=== PATIENT | female | born 1985 | race African-American/Black ===

== ENCOUNTER 2016-11-29 06:24 | Emergency (ER) | payer BC, OTHER ==
[~2016-11-29] VITALS: Ht 165.1 cm; Wt 75.5 kg
[~2016-11-29 06:24] MED LIST: CEPH500 PO; ESCI10TA PO
[2016-11-29 06:27] VITALS: BP 118/78
[2016-11-29] MEDS ORDERED: ALBU8.5H IH (06:53)
[2016-11-29] MEDS ORDERED: ALBUTEROL SULFATE HFA 90 MCG/PUFF 8 GM INHALER IH ONE (07:00)
== END 2016-11-29 07:09 | disposition home or self-care (01) ==
LOC: EMS 06:26
DX: J45.909 Unspecified asthma, uncomplicated (principal); R11.2 Nausea with vomiting, unspecified; R19.7 Diarrhea, unspecified; F17.210 Nicotine dependence, cigarettes, uncomplicated
CPT/HCPCS: 94640; 99283; 99406; J3535

== ENCOUNTER 2018-09-07 12:22 | Inpatient (IN) | payer MEDICAID ==
[~2018-09-07] VITALS: Ht 165.1 cm; Wt 68.5 kg
[~2018-09-07 12:22] MED LIST changes: -CEPH500 PO; +DSS100 PO; -ESCI10TA PO; +LITH300C3 PO; +OMEP20 PO; +VITAD1000 PO
[2018-09-07 13:00] LABS: HEMATOCRIT 39.6 % (36-46); HEMOGLOBIN 13.6 g/dL (12.0-16.0); MEAN CORPUSCULAR HEMOGLOBIN 32.7 pg (26.0-34.0); MEAN CORPUSCULAR HGB CONC 34.4 G/dL (31.0-37.0); MEAN CORPUSCULAR VOLUME 95 fL (80-100); MONOCYTES # (AUTO) 0.4 K/uL (0.1-1.0); MONOCYTES % (AUTO) 8.4 % (2.0-9.0); NEUTROPHILS # (AUTO) 2.6 K/uL (1.8-7.7); NEUTROPHILS % (AUTO) 48.6 % (40.0-70.0); PLATELET COUNT (AUTO) 323 K/uL (150-450); RED BLOOD CELL COUNT(AUTO) 4.16 MIL/uL (4.00-5.20); RED CELL DISTRIBUTION WIDTH 13.3 % (11.5-14.5)
[2018-09-07 13:08] LABS: ANION GAP 6 mmol/L (8-16); CALCIUM, TOTAL 9.1 mg/dL (8.8-10.5); CARBON DIOXIDE 28 mmol/L (22-29); CHLORIDE 105 mmol/L (98-107); CREATININE 1.07 mg/dL (0.60-1.30); GLOMERULAR FILTR. RATE CALC > 60 mL/min (>60); GLUCOSE,RANDOM 87 mg/dL (70-110); POTASSIUM 3.5 mmol/L (3.5-5.1); SODIUM SERUM 139 mmol/L (136-145); UREA NITROGEN, BLOOD 6 mg/dL (7-18)
[2018-09-07] MEDS ORDERED: LORazepam 2 MG/ML VIAL IM ONE (13:15)
[2018-09-07] MEDS ORDERED: HALOPERIDOL LACTATE 5 MG/ML VIAL IM ONE (13:15)
[2018-09-07] MEDS ORDERED: DiphenhydrAMINE HCL 50 MG/ML VIAL IM ONE (13:15)
[2018-09-07 13:17] LABS: LITHIUM < 0.20 mmol/L (0.60-1.20)
[2018-09-07 13:23] LABS: ALANINE AMINOTRANSFERASE 13 U/L (12-78); ALBUMIN 3.6 g/dL (3.4-5.0); ALKALINE PHOSPHATASE 78 U/L (46-116); ASPARTATE AMINOTRANSFERASE 21 U/L (15-37); BILIRUBIN,TOTAL 0.3 mg/dL (0.1-1.0); HCG,QUANTITATIVE < 1 mIU/mL (0-6); TOTAL PROTEIN, SERUM 7.7 g/dL (6.4-8.2)
[2018-09-07 15:20] LABS: APPEARANCE,URINE CLEAR (CLEAR); BILIRUBIN,URINE NEGATIVE (NEGATIVE); GLUCOSE, URINE (UA) NEGATIVE (NEGATIVE); KETONES,URINE NEGATIVE (NEGATIVE); LEUKOCYTE ESTERASE ,URINE NEGATIVE (NEGATIVE); NITRATE,URINE NEGATIVE (NEGATIVE); OCCULT BLOOD,URINE LARGE (NEGATIVE); PROTEIN,URINE NEGATIVE (NEGATIVE); UROBILINOGEN,URINE 0.2 mg/dL (<=1.0)
[2018-09-07 15:22] LABS: AMPHET/METH SCREEN,URINE NEGATIVE (NEGATIVE); BARBITURATE SCREEN, URINE NEGATIVE (NEGATIVE); BENZODIAZEPINES SCREEN,URINE POSITIVE (NEGATIVE); CANNABINOID SCREEN,URINE POSITIVE (NEGATIVE); COCAINE SCREEN,URINE NEGATIVE (NEGATIVE); METHADONE SCREEN, URINE NEGATIVE (NEGATIVE); OPIATE SCREEN,URINE NEGATIVE (NEGATIVE)
[2018-09-07 15:24] LABS: PHENCYCLIDINE SCREEN,URINE NEGATIVE (NEGATIVE)
[2018-09-07 15:28] LABS: BACTERIA,URINE None Seen /HPF (None Seen); SQUAMOUS EPITHELIAL CELL,UR Few /LPF (None Seen); WBC,URINE 0-2 /HPF (0-5)
[2018-09-08 02:26] VITALS: BP 107/74
[2018-09-08] MEDS ORDERED: LORazepam 2 MG/ML VIAL ONE (08:39)
[2018-09-08] MEDS ORDERED: LORazepam 2 MG/ML VIAL IM ONE (08:45)
[2018-09-08] MEDS ORDERED: HALOPERIDOL LACTATE 5 MG/ML VIAL IM ONE (08:45)
[2018-09-08] MEDS ORDERED: DiphenhydrAMINE HCL 50 MG/ML VIAL IM ONE (08:45)
[2018-09-08] MEDS: LITHIUM CARBONATE 300 MG CAPSULE PO SCH ×2 (10:45→16:42)
[2018-09-08] MEDS: ARIPiprazole 10 MG TABLET PO SCH (10:45)
[2018-09-08] MEDS ORDERED: PETROLATUM,WHITE 28 GM JELLY TP PRN (14:45)
[2018-09-08] MEDS ORDERED: CloNIDine HCL 0.1 MG TABLET PO PRN (14:45)
[2018-09-08] MEDS ORDERED: MAGNESIUM HYDROXIDE SUSPENSION 30 ML UDCUP PO PRN (14:45)
[2018-09-08] MEDS ORDERED: LOPERAMIDE HCL 2 MG CAPSULE PO PRN (14:45)
[2018-09-08] MEDS ORDERED: ONDANSETRON HCL 4 MG TABLET PO PRN (14:45)
[2018-09-08] MEDS ORDERED: DOCUSATE SODIUM 100 MG CAPSULE PO PRN (14:45)
[2018-09-08] MEDS ORDERED: ACETAMINOPHEN 325 MG TABLET PO PRN (14:45)
[2018-09-08] MEDS ORDERED: GuaiFENesin/D-METHORPHAN [SUGAR-FREE] 200-20MG/10 ML SYRUP UDCUP PO PRN (14:45)
[2018-09-08] MEDS ORDERED: MAG HYDROX/AL HYDROX/SIMETH ES 30 ML SUSPENSION UDCUP PO PRN (14:45)
[2018-09-08] MEDS ORDERED: IBUPROFEN 400 MG TABLET PO PRN (14:45)
[2018-09-09 06:31] VITALS: BP 110/68
[2018-09-09] MEDS: CHOLECALCIFEROL (VIT D3) 1,000 UNITS TABLET PO SCH (08:36)
[2018-09-09] MEDS: LORazepam 2 MG TABLET PO PRN (08:36)
[2018-09-09] MEDS: LITHIUM CARBONATE 300 MG CAPSULE PO SCH ×2 (08:36→16:08)
[2018-09-09] MEDS: HALOPERIDOL 5 MG TABLET PO PRN (08:36)
[2018-09-09] MEDS: OMEPRAZOLE 20 MG CAPSULE PO SCH (08:36)
[2018-09-09] MEDS: ARIPiprazole 10 MG TABLET PO SCH (08:36)
[2018-09-09] MEDS: ZOLPIDEM TARTRATE 10 MG TABLET PO PRN (21:51)
[2018-09-10 01:29] VITALS: BP 114/68
[2018-09-10 08:10] VITALS: BP 112/73
[2018-09-10] MEDS: LITHIUM CARBONATE 300 MG CAPSULE PO SCH ×2 (09:00→17:00)
[2018-09-10] MEDS: CHOLECALCIFEROL (VIT D3) 1,000 UNITS TABLET PO SCH (09:00)
[2018-09-10] MEDS: OMEPRAZOLE 20 MG CAPSULE PO SCH (09:00)
[2018-09-10] MEDS: ARIPiprazole 15 MG TABLET PO SCH (09:00)
[2018-09-10] MEDS ORDERED: LORazepam 2 MG/ML VIAL ONE (10:10)
[2018-09-10] MEDS ORDERED: DiphenhydrAMINE HCL 50 MG/ML VIAL IM ONE (10:15)
[2018-09-10] MEDS ORDERED: LORazepam 2 MG/ML VIAL IM ONE (10:15)
[2018-09-10] MEDS ORDERED: HALOPERIDOL LACTATE 5 MG/ML VIAL IM ONE (10:15)
[2018-09-10 11:13] VITALS: BP 101/63
[2018-09-10 16:07] VITALS: BP 100/65
[2018-09-10] MEDS: NICOTINE 14 MG/24 HOUR PATCH TD PRN (20:02)
[2018-09-10] MEDS: LORazepam 2 MG TABLET PO PRN (20:02)
[2018-09-10] MEDS: ZOLPIDEM TARTRATE 10 MG TABLET PO PRN (21:08)
[2018-09-11 06:17] VITALS: BP 103/64
[2018-09-11 08:03] VITALS: BP 112/76
[2018-09-11] MEDS: LITHIUM CARBONATE 300 MG CAPSULE PO SCH ×2 (08:53→17:00)
[2018-09-11] MEDS: CHOLECALCIFEROL (VIT D3) 1,000 UNITS TABLET PO SCH (08:53)
[2018-09-11] MEDS: OMEPRAZOLE 20 MG CAPSULE PO SCH (08:53)
[2018-09-11] MEDS: ARIPiprazole 15 MG TABLET PO SCH (08:53)
[2018-09-11] MEDS: NICOTINE 14 MG/24 HOUR PATCH TD PRN (10:04)
[2018-09-11 16:28] VITALS: BP 127/72
[2018-09-11] MEDS: LORazepam 2 MG TABLET PO PRN (17:25)
[2018-09-11] MEDS: ALBUTEROL SULFATE HFA 90 MCG/PUFF 8 GM INHALER IH PRN (18:29)
[2018-09-12 06:14] VITALS: BP 110/67
[2018-09-12 08:06] VITALS: BP 120/66
[2018-09-12] MEDS: OMEPRAZOLE 20 MG CAPSULE PO SCH (08:42)
[2018-09-12] MEDS: NICOTINE 14 MG/24 HOUR PATCH TD PRN (08:42)
[2018-09-12] MEDS: ARIPiprazole 15 MG TABLET PO SCH (08:42)
[2018-09-12] MEDS: CHOLECALCIFEROL (VIT D3) 1,000 UNITS TABLET PO SCH (08:48)
[2018-09-12] MEDS: LITHIUM CARBONATE 300 MG CAPSULE PO SCH ×2 (08:49→17:00)
[2018-09-12 16:05] VITALS: BP 113/61
[2018-09-12] MEDS: ALBUTEROL SULFATE HFA 90 MCG/PUFF 8 GM INHALER IH PRN (17:49)
[2018-09-12] MEDS: LORazepam 2 MG TABLET PO PRN (17:50)
[2018-09-12] MEDS: ZOLPIDEM TARTRATE 10 MG TABLET PO PRN (21:20)
[2018-09-13 02:40] VITALS: BP 112/64
[2018-09-13 08:04] VITALS: BP 116/68
[2018-09-13] MEDS: ARIPiprazole 15 MG TABLET PO SCH (08:21)
[2018-09-13] MEDS: LORazepam 2 MG TABLET PO PRN ×2 (08:21→15:44)
[2018-09-13] MEDS: LITHIUM CARBONATE 300 MG CAPSULE PO SCH ×2 (08:23→16:23)
[2018-09-13] MEDS: CHOLECALCIFEROL (VIT D3) 1,000 UNITS TABLET PO SCH (08:23)
[2018-09-13] MEDS: OMEPRAZOLE 20 MG CAPSULE PO SCH (08:23)
[2018-09-13] MEDS: NICOTINE 14 MG/24 HOUR PATCH TD PRN (15:44)
[2018-09-13 16:05] VITALS: BP 115/79
[2018-09-13] MEDS: ZOLPIDEM TARTRATE 10 MG TABLET PO PRN (21:32)
[2018-09-14 06:45] VITALS: BP 134/80
[2018-09-14 08:02] VITALS: BP 116/64
[2018-09-14] MEDS: NICOTINE 14 MG/24 HOUR PATCH TD PRN (08:11)
[2018-09-14] MEDS: CHOLECALCIFEROL (VIT D3) 1,000 UNITS TABLET PO SCH (08:12)
[2018-09-14] MEDS: LORazepam 2 MG TABLET PO PRN (08:12)
[2018-09-14] MEDS: LITHIUM CARBONATE 300 MG CAPSULE PO SCH ×2 (08:13→17:00)
[2018-09-14] MEDS: ARIPiprazole 15 MG TABLET PO SCH (08:13)
[2018-09-14] MEDS: OMEPRAZOLE 20 MG CAPSULE PO SCH (08:13)
[2018-09-14 16:09] VITALS: BP 110/75
[2018-09-14] MEDS: ZOLPIDEM TARTRATE 10 MG TABLET PO PRN (21:07)
[2018-09-15 01:41] VITALS: BP 102/70
[2018-09-15 08:11] VITALS: BP 110/73
[2018-09-15] MEDS: ARIPiprazole 15 MG TABLET PO SCH (08:25)
[2018-09-15] MEDS: OMEPRAZOLE 20 MG CAPSULE PO SCH (08:25)
[2018-09-15] MEDS: LORazepam 2 MG TABLET PO PRN ×2 (08:25→16:43)
[2018-09-15] MEDS: CHOLECALCIFEROL (VIT D3) 1,000 UNITS TABLET PO SCH (08:25)
[2018-09-15] MEDS: LITHIUM CARBONATE 300 MG CAPSULE PO SCH ×2 (08:26→17:00)
[2018-09-15] MEDS: NICOTINE 14 MG/24 HOUR PATCH TD PRN (08:26)
[2018-09-15 16:08] VITALS: BP 120/64
[2018-09-15] MEDS: HALOPERIDOL 5 MG TABLET PO PRN (16:43)
[2018-09-16 02:50] VITALS: BP 112/78
[2018-09-16] MEDS: ARIPiprazole 15 MG TABLET PO SCH (08:27)
[2018-09-16] MEDS: CHOLECALCIFEROL (VIT D3) 1,000 UNITS TABLET PO SCH (08:27)
[2018-09-16] MEDS: OMEPRAZOLE 20 MG CAPSULE PO SCH (08:27)
[2018-09-16] MEDS: LITHIUM CARBONATE 300 MG CAPSULE PO SCH (08:31)
[2018-09-16 08:48] VITALS: BP 104/61
[2018-09-16 16:00] VITALS: BP 104/64
[2018-09-16] MEDS ORDERED: NICOTINE 14 MG/24 HOUR PATCH TD ONE (16:15)
[2018-09-16] MEDS: ALBUTEROL SULFATE HFA 90 MCG/PUFF 8 GM INHALER IH PRN (17:51)
[2018-09-16] MEDS: LORazepam 2 MG TABLET PO PRN (17:51)
[2018-09-16] MEDS: ZOLPIDEM TARTRATE 10 MG TABLET PO PRN (20:55)
[2018-09-17 06:43] VITALS: BP 114/64
[2018-09-17 08:21] VITALS: BP 109/70
[2018-09-17] MEDS: NICOTINE 14 MG/24 HOUR PATCH TD SCH (09:00)
[2018-09-17] MEDS: ARIPiprazole 10 MG TABLET PO SCH (09:21)
[2018-09-17] MEDS: CHOLECALCIFEROL (VIT D3) 1,000 UNITS TABLET PO SCH (09:21)
[2018-09-17] MEDS: OMEPRAZOLE 20 MG CAPSULE PO SCH (09:21)
[2018-09-17] MEDS: LORazepam 2 MG TABLET PO PRN ×2 (12:38→16:49)
[2018-09-17] MEDS: GABAPENTIN 300 MG CAPSULE PO SCH ×2 (12:38→16:17)
[2018-09-17 16:04] VITALS: BP 122/67
[2018-09-18] MEDS: ZOLPIDEM TARTRATE 10 MG TABLET PO PRN (01:23)
[2018-09-18 01:50] VITALS: BP 135/73
[2018-09-18] MEDS: OMEPRAZOLE 20 MG CAPSULE PO SCH (08:40)
[2018-09-18] MEDS: ARIPiprazole 10 MG TABLET PO SCH (08:40)
[2018-09-18] MEDS: GABAPENTIN 300 MG CAPSULE PO SCH ×3 (08:40→16:51)
[2018-09-18] MEDS: NICOTINE 14 MG/24 HOUR PATCH TD SCH (08:40)
[2018-09-18] MEDS: CHOLECALCIFEROL (VIT D3) 1,000 UNITS TABLET PO SCH (08:40)
[2018-09-18 09:00] VITALS: BP 110/62
[2018-09-18 16:20] VITALS: BP 125/60
[2018-09-18] MEDS: LORazepam 2 MG TABLET PO PRN (17:22)
[2018-09-19 00:50] VITALS: BP 116/72
[2018-09-19] MEDS: ZOLPIDEM TARTRATE 10 MG TABLET PO PRN (01:40)
[2018-09-19] MEDS: HALOPERIDOL 5 MG TABLET PO PRN (06:52)
[2018-09-19] MEDS: LORazepam 2 MG TABLET PO PRN ×2 (06:52→12:12)
[2018-09-19 08:25] VITALS: BP 118/72
[2018-09-19] MEDS: CHOLECALCIFEROL (VIT D3) 1,000 UNITS TABLET PO SCH (09:02)
[2018-09-19] MEDS: OMEPRAZOLE 20 MG CAPSULE PO SCH (09:02)
[2018-09-19] MEDS: GABAPENTIN 300 MG CAPSULE PO SCH ×2 (09:02→12:12)
[2018-09-19] MEDS: ARIPiprazole 10 MG TABLET PO SCH (09:02)
[2018-09-19] MEDS: NICOTINE 14 MG/24 HOUR PATCH TD SCH (09:03)
[2018-09-19] MEDS ORDERED: ARIP10TA8 PO (14:18)
[2018-09-19] MEDS ORDERED: GABA-531 PO (14:18)
== END 2018-09-19 14:40 | disposition home or self-care (01) | DRG 750 ==
LOC: EMS 12:24 → B3A 23:57
PROVIDERS: ADMIT Psychiatry & Neurology Psychiatry; ATTEND Psychiatry & Neurology Psychiatry
DX: F25.0 Schizoaffective disorder, bipolar type (principal); R45.851 Suicidal ideations; Z78.1 Physical restraint status; E55.9 Vitamin D deficiency, unspecified; J45.909 Unspecified asthma, uncomplicated; K21.9 Gastro-esophageal reflux disease without esophagitis; K59.00 Constipation, unspecified; F12.10 Cannabis abuse, uncomplicated; R45.87 Impulsiveness; R41.843 Psychomotor deficit; F17.210 Nicotine dependence, cigarettes, uncomplicated; Z91.14 Patient's other noncompliance with medication regimen; Z88.8 Allergy status to other drugs, medicaments and biological substances; Z79.899 Other long term (current) drug therapy
CPT/HCPCS: 96372; G0480; J1200; J1630; J2060; J3535